=== PATIENT | male | born 1995 | race African-American/Black ===

== ENCOUNTER 2020-08-08 19:58 | Emergency (ER) | payer SELFPAY ==
[~2020-08-08] VITALS: Ht 195.6 cm; Wt 154.0 kg
[2020-08-08 21:12] LABS: BILIRUBIN,URINE NEGATIVE (NEG); CLARITY,URINE CLEAR; COLOR,URINE YELLOW; NITRITE,URINE NEGATIVE (NEG); PROTEIN,URINE NEGATIVE (NEG-TRACE); UROBILINOGEN,URINE 0.2 mg/dL (0.2 mg/dL)
[2020-08-08] MEDS ORDERED: IV NORMAL SALINE 1000ML BAG 1,000 ML IV ONE (21:15)
[2020-08-08 21:21] LABS: BACTERIA,URINE FEW /HPF (0-FEW)
--- NOTE | 2020-08-08 21:21 | RAD ---
Single view chest dated 08/08/2020: Comparison made to 10/16/2010. Clinical Indication: Hyperglycemia. Findings: Single upright portable exam of the chest was performed. Heart size and mediastinal contours are within normal limits given technique. The lungs are clear without evidence of focal consolidation. Vascular interstitium is within normal limits. Impression:: Negative portable chest. Electronically signed by: Gage Gottlieb MD (08/08/2020 9:18 PM) [facility]
[2020-08-08 21:46] LABS: BASO # 0.1 x10^3/uL (0.0-0.2); BASO % 1 % (0-3); EOS # 0.1 x10^3/uL (0.0-0.7); EOS % 2 % (0-3); HEMATOCRIT 38.9 % (39.0-53.0); HEMOGLOBIN 12.6 g/dL (13.0-17.5); LYMPH # 1.7 x10^3/uL (1.0-4.8); LYMPH % 31 % (24-48); MEAN CORPUSCULAR HEMOGLOBIN 27 pg (25-35); MEAN CORPUSCULAR HGB CONC 32 g/dL (31-37); MEAN CORPUSCULAR VOLUME 82 fL (79-100); MONO # 0.5 x10^3/uL (0.0-1.1); MONO % 9 % (0-9); NEUT # 3.3 x10^3/uL (1.8-7.7); NEUT % 58 % (31-73); PLATELET COUNT 393 x10^3/uL (140-400); RED BLOOD COUNT 4.74 x10^6/uL (4.30-5.70); RED CELL DISTRIBUTION WIDTH 13.8 % (11.5-14.5); WHITE BLOOD COUNT 5.6 x10^3/uL (4.0-11.0)
[2020-08-08 22:06] LABS: CALCIUM 9.2 mg/dL (8.5-10.1); CREATININE 0.8 mg/dL (0.7-1.3); GFR 141.4; POTASSIUM 4.3 mmol/L (3.5-5.1)
[2020-08-08 22:13] LABS: ALBUMIN 3.1 g/dL (3.4-5.0); ALBUMIN/GLOBULIN RATIO 0.8 (1.0-1.7); MAGNESIUM 1.8 mg/dL (1.8-2.4); PHOSPHORUS 4.1 mg/dL (2.6-4.7); TOTAL BILIRUBIN 0.3 mg/dL (0.2-1.0)
--- NOTE | 2020-08-08 22:19 | PHYS DOC ---
Past Medical History Past Medical History: Diabetes-Type I Past Surgical History: Other Additional Past Surgical Histo: LEG Smoking Status: Current Every Day Smoker Alcohol Use: None General Adult EDM: Chief Complaint: BLOOD SUGAR PROBLEM HPI: HPI: 25-year-old male past medical history of type 2 diabetes and obesity, presents to the ED with complaints of "increased thirst, [place] and peeing alot at night," stating he lost his insurance and has no refills for his diabetes medications. Has been using a pen from his uncle, taking 20 units of Humalog daily and 20 units of Lantus twice daily. Patient states he did not go to work today and is requesting a work note so that he can return to work. Is also requesting referral for primary care physician. States "I have no infection, I do not have COVID." Review of Systems: Review of Systems: Constitutional: Denies fever or chills. [] Eyes: Denies change in visual acuity. [] HENT: Denies nasal congestion or sore throat. [] Respiratory: Denies cough or shortness of breath. [] or hemoptysis Cardiovascular: Denies chest pain or edema. [] GI: Denies abdominal pain, nausea, vomiting, melena, hematochezia, or diarrhea. [] : Denies dysuria. [] Musculoskeletal: Denies back pain or joint pain. [] Integument: Denies rash. [] Neurologic: Denies headache, focal weakness or sensory changes. [] or nuchal rigidity Endocrine: Denies polyuria or polydipsia. [] Lymphatic: Denies swollen glands. [] Psychiatric: Denies depression or anxiety. [] Heart Score: Risk Factors: Risk Factors: DM, Current or recent (<one month) smoker, HTN, HLP, family history of CAD, obesity. Risk Scores: Score 0 - 3: 2.5% MACE over next 6 weeks - Discharge Home Score 4 - 6: 20.3% MACE over next 6 weeks - Admit for Clinical Observation Score 7 - 10: 72.7% MACE over next 6 weeks - Early Invasive Strategies Current Medications: Current Medications Medications (Trade) Dose Ordered Sig/Shivam Start Time Stop Time Status Last Admin Dose Admin Sodium Chloride 1,000 ml @ 1,000 mls/hr 1X ONCE 08/08/20 21:15 08/08/20 22:14 08/08/20 21:44 1,000 MLS/HR Allergies: Allergies: Allergies Coded Allergies Type Severity Reaction Last Updated Verified lisinopril Allergy Severe 08/08/20 Yes Physical Exam: PE: Constitutional: Well developed, well nourished, no acute distress, non-toxic appearance. [] HENT: Normocephalic, atraumatic, Eyes: EOMI, conjunctiva normal, no discharge. [] Neck: Normal range of motion, supple, no stridor. [] Cardiovascular:Heart rate regular rhythm, no murmur [] Lungs & Thorax: Bilateral breath sounds clear to auscultation [] Abdomen: Bowel sounds normal, soft, no tenderness, no masses, no pulsatile masses. [] Skin: Warm, dry, no erythema, no rash. [] Back: No tenderness, no CVA tenderness. [] Extremities: No tenderness, no cyanosis, no clubbing, ROM intact, no edema. [] Neurologic: Alert and oriented X 3, normal motor function, normal sensory funct ion, no focal deficits noted. [] Psychologic: Affect normal, judgement normal, mood normal. [] Current Patient Data: Labs: Laboratory Tests Test 08/08/20 20:02 08/08/20 20:08 08/08/20 21:30 Glucose (Fingerstick) 267 mg/dL (70-99) H Urine Collection Type Unknown Urine Color Yellow Urine Clarity Clear Urine pH 6.0 (<5.0-8.0) Urine Specific [place] >=1.030 (1.000-1.030) Urine Protein Negative mg/dL (NEG-TRACE) Urine Glucose (UA) 500 mg/dL (NEG) Urine Ketones (Stick) Negative mg/dL (NEG) Urine Blood Negative (NEG) Urine Nitrite Negative (NEG) Urine Bilirubin Negative (NEG) Urine Urobilinogen Dipstick 0.2 mg/dL (0.2 mg/dL) Urine Leukocyte Esterase Negative (NEG) Urine RBC 1-2 /HPF (0-2) Urine WBC 1-4 /HPF (0-4) Urine Squamous Epithelial Cells Few /LPF Urine Bacteria Few /HPF (0-FEW) Urine Mucus Marked /LPF White Blood Count 5.6 x10^3/uL (4.0-11.0) Red Blood Count 4.74 x10^6/uL (4.30-5.70) Hemoglobin 12.6 g/dL (13.0-17.5) L Hematocrit 38.9 % (39.0-53.0) L Mean Corpuscular Volume 82 fL (79-100) Mean Corpuscular Hemoglobin 27 pg (25-35) Mean Corpuscular Hemoglobin Concent 32 g/dL (31-37) Red Cell Distribution Width 13.8 % (11.5-14.5) Platelet Count 393 x10^3/uL (140-400) Neutrophils (%) (Auto) 58 % (31-73) Lymphocytes (%) (Auto) 31 % (24-48) Monocytes (%) (Auto) 9 % (0-9) Eosinophils (%) (Auto) 2 % (0-3) Basophils (%) (Auto) 1 % (0-3) Neutrophils # (Auto) 3.3 x10^3/uL (1.8-7.7) Lymphocytes # (Auto) 1.7 x10^3/uL (1.0-4.8) Monocytes # (Auto) 0.5 x10^3/uL (0.0-1.1) Eosinophils # (Auto) 0.1 x10^3/uL (0.0-0.7) Basophils # (Auto) 0.1 x10^3/uL (0.0-0.2) Sodium Level 138 mmol/L (136-145) Potassium Level 4.3 mmol/L (3.5-5.1) Chloride Level 101 mmol/L (98-107) Carbon Dioxide Level 33 mmol/L (21-32) H Anion Gap 4 (6-14) L Blood Urea Nitrogen 10 mg/dL (8-26) Creatinine 0.8 mg/dL (0.7-1.3) Estimated GFR (Cockcroft-Gault) 141.4 BUN/Creatinine Ratio 13 (6-20) Glucose Level 195 mg/dL (70-99) H Calcium Level 9.2 mg/dL (8.5-10.1) Phosphorus Level Pending Magnesium Level Pending Total Bilirubin Pending Aspartate Amino Transferase (AST) Pending Alanine Aminotransferase (ALT) Pending Alkaline Phosphatase Pending Total Protein Pending Albumin Pending Albumin/Globulin Ratio Pending Laboratory Tests 10/8/20 21:30 Laboratory Tests 08/08/20 21:30 Vital Signs: Vital Signs Date Time Temp Pulse Resp B/P (MAP) Pulse Ox O2 Delivery O2 Flow Rate FiO2 08/08/20 20:56 98.3 82 20 132/81 (98) 99 Room Air 98.3 EKG: EKG: [] Radiology/Procedures: Radiology/Procedures: IMAGING REPORT Signed PATIENT: MARQUISE Sean HOPSON ACCOUNT: [id number] : 1995 LOCATION: ER AGE: 25 SEX: M EXAM STATUS: REG ER ORD. PHYSICIAN: SURI BELLO DO REASON: hyperglycemia PROCEDURE: CHEST AP ONLY Single view chest dated 08/08/2020: Comparison made to 10/16/2010. Clinical Indication: Hyperglycemia. Findings: Single upright portable exam of the chest was performed. Heart size and mediastinal contours are within normal limits given technique. The lungs are clear without evidence of focal consolidation. Vascular interstitium is within normal limits. Impression:: Negative portable chest. Electronically signed by: Gage Gottlieb MD (08/08/2020 9:18 PM) [facility] DICTATED and SIGNED BY: GAGE GOTTLIEB MD DATE: 08/08/202117 Course & Med Decision Making: Course & Med Decision Making Pertinent Labs and Imaging studies reviewed. (See chart for details) Encounter for work note and referral for primary care physician and medications for diabetes. X-ray with no acute process. Urinalysis with no infection. Labs show no leukocytosis, patient is afebrile with no tachycardia. Glucose went from 2 67-1 95, has no anion gap. Is not in DKA. Other than polyuria, polydipsia related to poorly controlled diabetes, patient has no other complaints. Patient is very well-appearing and in no distress. Will DC home with PMD referral. Strict ED return precautions given for fever, nuchal rigidity, nausea, vomiting, dehydration or any infectious process. Encouraged urgent outpatient follow-up with PMD. Life-threatening processes were considered but are low suspicion at this time, given history and physical exam. Pt was educated on all prescription medications and adverse effects. All patient's questions were answered and pt was stable at time of discharge. Life/limb-threatening differential includes but is not limited to, surgical abdomen (appendicitis, cholecystitis, diverticulitis, inflammatory bowel disease, abscess, perforation), meningitis, encephalitis, Sujit's angina, necrotizing fasciitis, endocarditis, life-threatening rash, viral syndrome, gynecologic and urologic emergencies (endometritis, ovarian/testicular torsion, TOA, obstructive nephropathy, prostatitis), head and neck abscess, sepsis or shock, or respiratory failure. I spoken with the patient and her caregivers. I explained the patient's condition, diagnoses and treatment plan based on the information available to me at this time. I have answered the patient and her caregiver's questions and addressed any concerns. The patient and her caregivers have a good understanding of patient's diagnosis, condition and treatment plan as can be expected at this point. Vital signs have been stable. Patient's condition is stable and appropriate for discharge from the emergency department. Patient will pursue further outpatient evaluation with primary care physician or other designated or consulting physician as outlined in the discharge instructions. The patient and/or caregivers are agreeable to this plan of care and follow-up instructions have been explained in detail. The patient and/or caregivers have received these instructions in written form and have expressed an understanding of the discharge instructions. The patient and/or caregivers are aware that any significant change of condition or worsening of symptoms should prompt immediate return to this or the closest emergency department or call to [facility]. Dominique Disclaimer: Dominique Disclaimer: This electronic medical record was generated, in whole or in part, using a voice recognition dictation system. Departure Departure Impression: Primary Impression: Uncontrolled diabetes mellitus Additional Impressions: Hyperglycemia Encounter to obtain excuse from work Disposition: 01 DC HOME SELF CARE/HOMELESS Condition: STABLE Referrals: NO PCP (PCP) FOLLOW UP WITH FAMILY MEDICINE: Family Medicine Address: [address] [place] [id number] Patient Instructions: Diabetes Meal Planning Guide, Hyperglycemia Additional Instructions: [facility] FAX: [phone] Office: [phone] Appointments: [phone] Option 1 Location: Fifth floor of the Medical Office Building EMERGENCY DEPARTMENT GENERAL DISCHARGE INSTRUCTIONS Thank you for coming to [facility] Emergency Department (ED) today and trusting us with you care. We trust that you had a positive experience in our Emergency Department. If you wish to speak to the department management, you may call the Director at [phone]. YOUR FOLLOW UP INSTRUCTIONS ARE FOLLOWS: 1. Do you have a private Doctor? If you do not have a private doctor, please ask for a resource list of physicians or clinics that may be able to assist you with follow up care. 2. The Emergency Physicain has interpreted your x-rays. The X-Ray specialist will also review them. If there is a change in the findings, you will be notified in 48 hours when at all possible. 3. A lab test or culture has been done, your results will be reviewed and you will be notified if you need a change in treatment. ADDITIONAL INSTRUCTIONS AND INFORMATION: 1. Your care today has been supervised by a physician who is specially trained in emergency care. Many problems require more than one evaluation for a complete diagnosis and treatment. We recommend that you schedule your follow up appointment as recommended to ensure complete treatment of you illness or injury. If you are unable to obtain follow up care and continue to have a problem, or if your condition worsens, we recommend that you return to the ED. 2. We are not able to safely determine your condition over the phone nor are we able to give sound medical advice over the phone. For these safety reasons, if you call for medical advice we will ask you to come to the ED for further evaluation. 3. If you have any questions regarding these discharge instructions please call the ED at [phone]. SAFETY INFORMATION: In the interest of safety, wellness, and injury prevention; we encourage you to wear your sealbelt, if you smoke; quite smoking, and we encourage family to use a protective helmet for bicycling and other sporting events that present an increased risk for head injury. IF YOUR SYMPTOMS WORSEN OR NEW SYMPTOMS DEVELOP, OR YOU HAVE CONCERNS ABOUT YOUR CONDITION; OR IF YOUR CONDITION WORSENS WHILE YOU ARE WAITING FOR YOUR FOLLOW UP APPOINTMENT; EITHER CONTACT YOUR PRIMARY CARE DOCTOR, THE PHYSICIAN WHOSE NAME AND NUMBER YOU WERE GIVEN, OR RETURN TO THE ED IMMEDIATELY. SURI BELLO DO Aug 08, 2020 22:19
[2020-08-08 22:33] VITALS: BP 109/58
== END 2020-08-08 22:35 | disposition home or self-care (01) ==
LOC: ER 19:58
DX: E10.65 Type 1 diabetes mellitus with hyperglycemia (principal); F17.200 Nicotine dependence, unspecified, uncomplicated; Z98.890 Other specified postprocedural states; Z88.6 Allergy status to analgesic agent
CPT/HCPCS: 36415; 71045; 80053; 81001; 82962; 83735; 84100; 85025; 96360; 99284; J7030